=== PATIENT | male | born 1985 | race Hispanic/Latino ===

== ENCOUNTER 2018-08-17 08:24 | Emergency (ER) | payer OTHER ==
[~2018-08-17] VITALS: Ht 175.3 cm; Wt 81.6 kg
[2018-08-17] MEDS ORDERED: KETOROLAC TROMETHAMINE 30 MG/ML VIAL IV STA (08:42)
[2018-08-17] MEDS ORDERED: SODIUM CHLORIDE 0.9% 1000ML 1,000 ML IV SCH (08:45)
[2018-08-17] MEDS ORDERED: ONDANSETRON HCL INJ 2MG/ML 2ML 2 MG/ML VIAL IV STA (08:45)
[2018-08-17] MEDS ORDERED: IOPAMIDOL 300MG/ML 100 ML INFUS..BTL IV ONE (10:45)
--- NOTE | 2018-08-17 10:46 | Diagnostic Imaging Report ---
EXAMINATION: CT of the abdomen and pelvis with contrast. TECHNIQUE: Spiral CT images of the abdomen and pelvis were performed from the lung bases to the lesser trochanters after the intravenous administration of 100 cc Isovue-300 and the oral administration of Gastrografin. Coronal and sagittal reformatted images were obtained. COMPARISON: None. CLINICAL HISTORY:Lower abdominal pain DISCUSSION: ABDOMEN/PELVIS: LOWER THORAX:Subsegmental atelectasis in the dependent lower lobes. HEPATOBILIARY: No focal hepatic lesions. No intra-or extrahepatic biliary ductal dilation. The gallbladder is normal. SPLEEN: No splenomegaly. PANCREAS: No focal masses or ductal dilatation. ADRENALS: No adrenal nodules. KIDNEYS/URETERS: Subcentimeter hypoattenuating lesion in the lower pole of the left kidney is too small to further characterize but likely to represent a small cyst. No calculi, hydronephrosis, or solid mass lesion. PELVIC ORGANS/BLADDER: The urinary bladder is incompletely distended but otherwise unremarkable. Prostate and seminal vesicles appear normal. PERITONEUM/RETROPERITONEUM: Trace free fluid in the pelvis. No pneumoperitoneum. LYMPH NODES: No pelvic sidewall, retroperitoneal, or mesenteric lymphadenopathy. VESSELS: Abdominal aorta, major branch vessels, and iliac arterial systems are patent, without aneurysmal dilatation. Portal vein, splenic vein, and central superior mesenteric vein are patent. GI TRACT: Multiple sigmoid diverticula with an approximately 5 cm segment of mid sigmoid colon wall thickening, enhancement, and mesocolic inflammatory fat stranding best seen on series 2 image 73. No mel extraluminal gas. No adjacent fluid collection. The appendix is normal. No small bowel dilatation to suggest obstruction. BONES AND SOFT TISSUE: No bony destructive lesions. No soft tissue abnormalities. IMPRESSION: Acute diverticulitis of the mid sigmoid colon, without mel perforation or drainable fluid collection. Signed by: Dr. Ryne Solano M.D. on 08/17/2018 10:42 AM
[2018-08-17] MEDS ORDERED: METRONIDAZOLE500 MG PO (10:58)
[2018-08-17] MEDS ORDERED: CIPRO500 MG PO (10:58)
[2018-08-17] MEDS ORDERED: ULTRAM50 MG PO (10:58)
[2018-08-17] MEDS ORDERED: METRONIDAZOLE 500MG/NS 100ML 100 ML IV ONE (11:15)
[2018-08-17] MEDS ORDERED: CIPROFLOXACIN 500 MG TAB PO SCH (11:15)
[2018-08-17 11:17] VITALS: BP 120/70
== END 2018-08-17 11:30 | disposition home or self-care (01) ==
LOC: FSED 08:24
DX: K57.32 Diverticulitis of large intestine without perforation or abscess without bleeding (principal)
CPT/HCPCS: 74177; 80053; 81003; 85025; 99284; J1885; J2405; Q9967